=== PATIENT | male | born 1970 | race Asian ===

== ENCOUNTER 2021-07-22 15:33 | Outpatient (CLI) | payer OTHER ==
[2021-07-22 16:45] VITALS: BP 133/89
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
== END 2021-07-22 15:34 | disposition home or self-care (01) ==
LOC: SC 15:33
PROVIDERS: ATTEND Nurse Practitioner Family
DX: G47.10 Hypersomnia, unspecified (principal); R06.83 Snoring; R51.9 Headache, unspecified; G47.8 Other sleep disorders; R06.81 Apnea, not elsewhere classified; R41.89 Other symptoms and signs involving cognitive functions and awareness
CPT/HCPCS: 99203; 99212

== ENCOUNTER 2021-08-13 10:22 | Outpatient (CLI) | payer OTHER ==
[2021-08-13 15:33] LABS: ALBUMIN 4.5 g/dL (3.2-5.5); ALBUMIN/GLOBULIN RATIO 1.4 (1.0-2.2); ALKALINE PHOSPHATASE 52 IU/L (42-121); ALT ALANINE AMINOTRANSFERASE 49 IU/L (10-60); AST ASPARTATE AMINOTRANSFERASE 28 IU/L (10-42); BILIRUBIN,TOTAL 0.9 mg/dL (0.2-1.0); BUN - BLOOD UREA NITROGEN 17 mg/dL (6-20); CALCIUM 9.5 mg/dL (8.5-10.3); CARBON DIOXIDE - CO2 28 mmol/L (21-32); CHLORIDE 103 mmol/L (101-111); CHOL/HDL RATIO 6.6 (<5.0); CHOLESTEROL 299 mg/dL; CREATININE 0.9 mg/dL (0.6-1.2); GFR - MDRD 89 (>89); GLUCOSE 118 mg/dL (70-100); HDL CHOLESTEROL 45 mg/dL; LDL CHOLESTEROL,CALCULATED 218 mg/dL; LDL/HDL RATIO 4.8 (<3.6); POTASSIUM 4.1 mmol/L (3.5-5.0); SODIUM 140 mmol/L (135-145); TOTAL PROTEIN 7.8 g/dL (6.7-8.2); TRIGLYCERIDES 182 mg/dL; VLDL CHOLESTEROL 36 mg/dL
[2021-08-13 20:03] LABS: ESTIMATED AVERAGE GLUCOSE 128 mg/dL (70-100); HEMOGLOBIN A1c% 6.1 % (4.27-6.07)
== END 2021-08-13 10:23 | disposition home or self-care (01) ==
LOC: LAB.S 10:22
PROVIDERS: ATTEND Internal Medicine
DX: R06.83 Snoring (principal); Z13.220 Encounter for screening for lipoid disorders; Z83.3 Family history of diabetes mellitus
CPT/HCPCS: 36415; 80053; 80061; 83036; 83721

== ENCOUNTER 2021-09-23 15:05 | Outpatient (CLI) | payer OTHER ==
--- NOTE | 2021-09-23 15:39 | SLEEP CARE CONSULTATION ---
Information from patient questionnaire entered by Ngozi Oden. I have reviewed and concur with the information entered by Ngozi Oden. This document represents the service I personally performed and the decisions made by , Lacy Spaulding ARNP. History of Present Illness Service Date and Time: 09/23/2021 1505 Initial [place] Sleepiness Scale score: 15 (in 2020) Current [place] Sleepiness Scale score: 17 Additional HPI information: CLARE TURK returns for follow up and results of the recently performed polysomnography at [facility] on 08-02-21. I explained the pathophysiology behind obstructive sleep apnea. We then spent quite a bit of time discussing different treatment options. For mild obstructive sleep apnea, surgery and oral appliance are alternatives to nasal CPAP therapy but in moderate or severe cases, nasal CPAP is the most effective and reliable treatment. Because apnea is primarily in supine position, then positional management therapy could be effective. Methods discussed such as positioning with pillows to prevent supine sleep. I reviewed the impact of weight changes on sleep apnea and strongly recommended losing weight. After some discussion, the patient opted to go with the nasal CPAP therapy. Nasal autoCPAP set at 4-15 cmH20 will be ordered with rationale explained. A manual titration study will be ordered if unable to find optimal pressure with office adjustments. I explained how CPAP machine works with sample devices RespirShop 9 Sevens Dreamstation and Adnexus [id number] and what to expect when using the machine. Using CPAP every night in order to get used to it was emphasized. Patient advised to put CPAP mask on before getting into bed so as not to fall asleep without CPAP. To assist acclimation to CPAP use, it could also be used for a short time during day while reading or watching TV. The patient was instructed to call the CPAP supplier to discuss any mechanical problem that may occur. If the mask given is uncomfortable or is difficult to keep on through the night even with adjustment, contact the CPAP supplier as many will replace with another mask style if notified before 30 days. If snoring or perceives is not getting enough air or too much air from the machine, notify this office. [facility] patient education PAP tips reviewed and given to patient. Patient counseled not drink alcohol less than 4 hours before bedtime as it can increase snoring and apnea. Patient was cautioned about risks of drowsy driving until sleepiness symptoms resolve. AASM patient education on snoring and sleep apnea given and reviewed. Sleep Study - Results Type of Sleep Study: Polysomnography ([facility] 08/02/21) Prior sleep studies: No Polysomnography/Home Sleep Study results: RECOMMENDATION: This nocturnal polysomnographic sleep study showed moderate snoring which was continuous in nature. The apnea/ hypopnea index was 85.0 and the sleep efficiency was 94.1 %. The PLM index was 7.1. The sleep study is consistent with severe obstructive sleep apnea with significant desaturation events down to 76%. Therefore, would recommend the patient return to the sleep lab for a full-night CPAP titration study. Attaining optimal weight is recommended. The EKG showed no significant arrhythmias. Allergies and Home Medications Home medication list reviewed: Yes (no changes) Review of Systems Review of systems same as previous: Yes (no changes) Physical Exam Heart Rate: 73 O2 Saturation: 98 Height: 6 ft 6 in Weight: 248 lb Body Mass Index: 28.6 BMI Classification: Overweight Impression and Plan 1. Obstructive Sleep Apnea-Hypopnea Syndrome, very severe, with lowest oxygen saturation of 76%. Obviously this is the cause of the patients symptoms of unrefreshed sleep, and excessive daytime sleepiness. Positive pressure therapy could benefit his overall health and reduce risks for cardiovascular and cerebrovascular adverse events. As mentioned above, the patient will be started on nasal autoCPAP therapy with pressure set at 4-15 cmH2O. A manual titration study will be completed if unable to find optimal treatment pressure with office adjustments. Compliance guidelines also reviewed. A copy of compliance guidelines will be given for reference at check out. Because the apnea is more severe supine, I instructed to avoid sleeping supine using pillow positioning until able to start CPAP use. * Nasal auto CPAP therapy, pressure at 4-15 cm H2O. * Attempt to lose weight. * Avoid alcohol consumption near bedtime. * Avoid supine sleep until using CPAP. * The patient is again cautioned about driving until sleepiness completely r esolves. * Return one month after CPAP obtained. I will assess response to therapy and compliance at that time. Counseling Topics: Weight loss health impact Visit Type: In Office Time Spent with Patient (minutes): 20 Provider Statement: I spent 100% of the Face to Face Visit with the patient with greater than 50% spent counseling the patient and coordination of care.
== END 2021-09-23 15:06 | disposition home or self-care (01) ==
LOC: SC 15:05
PROVIDERS: ATTEND Nurse Practitioner Family
DX: G47.33 Obstructive sleep apnea (adult) (pediatric) (principal)
CPT/HCPCS: 99212; 99213

== ENCOUNTER 2022-05-22 14:49 | Outpatient (CLI) | payer OTHER ==
[2022-05-22 19:55] LABS: BASOPHILS # (AUTO) 0.1 10^3/uL (0.0-0.1); BASOPHILS % (AUTO) 0.5 %; EOSINOPHILS # (AUTO) 0.3 10^3/uL (0.0-0.7); EOSINOPHILS % (AUTO) 2.7 %; HCT - HEMATOCRIT 46.1 % (42.0-52.0); HGB - HEMOGLOBIN 15.3 g/dL (14.0-18.0); LYMPHOCYTES # (AUTO) 3.3 10^3/uL (1.5-3.5); LYMPHOCYTES % (AUTO) 34.9 %; MEAN CORPUSCULAR HEMOGLOBIN 29.9 pg (27.0-31.0); MEAN CORPUSCULAR HGB CONC 33.2 g/dL (32.0-36.0); MEAN PLATELET VOLUME 10.1 fL (7.4-11.4); MONOCYTES # (AUTO) 0.8 10^3/uL (0.0-1.0); MONOCYTES % (AUTO) 8.2 %; NEUTROPHILS % (AUTO) 53.5 %; PLT - PLATELET COUNT 249 10^3/uL (130-450); RED BLOOD COUNT 5.12 10^6/uL (4.70-6.10); RED CELL DISTRIBUTION WIDTH 12.8 % (12.0-15.0); WHITE BLOOD COUNT 9.3 x10^3/uL (4.8-10.8)
== END 2022-05-22 14:50 | disposition home or self-care (01) ==
LOC: LAB.S 14:49
PROVIDERS: ATTEND Registered Nurse
DX: E78.5 Hyperlipidemia, unspecified (principal); R73.9 Hyperglycemia, unspecified; R97.20 Elevated prostate specific antigen [PSA]; Z13.29 Encounter for screening for other suspected endocrine disorder; Z13.0 Encounter for screening for diseases of the blood and blood-forming organs and certain disorders involving the immune mechanism
CPT/HCPCS: 36415; 85025

== ENCOUNTER 2022-08-23 07:05 | Day surgery (SDC) | payer OTHER ==
[2022-08-23] MEDS ORDERED: LACTATED RINGERS 1,000 ML IV ONE (07:19)
[2022-08-23] MEDS ORDERED: PROPOFOL 200 MG/20 ML VIAL IVP ONE (08:01)
[2022-08-23] MEDS ORDERED: PROPOFOL 500 MG/50 ML 500 MG/50 ML VIAL ONE (08:03)
[2022-08-23] MEDS ORDERED: MIDAZOLAM 2 MG/2 ML VIAL ONE (08:03)
--- NOTE | 2022-08-23 08:09 | ANESTHESIA ---
Pre-Anesthesia VS, & Labs - Diagnosis screening - Procedure colonoscopy Vital Signs: Temp Pulse Resp BP Pulse Ox O2 Flow Rate 36.2 C L 72 14 152/95 H 99 0 08/23/22 07:19 08/23/22 07:19 08/23/22 07:19 08/23/22 07:19 08/23/22 07:19 08/23/22 07:19 Height: 6 ft 5 in Weight (kg): 109.6 kg Body Mass Index: 28.6 BMI Classification: Overweight - NPO >8 hours Home Medications and Allergies Home Medications: Ambulatory Orders No Known Home Medications 08/22/22 No Known Home Medications 08/22/22 Allergies/Adverse Reactions: Allergies Allergy/AdvReac Type Severity Reaction Status Date / Time Sulfa (Sulfonamide AdvReac Unknown Verified 08/23/22 07:27 Antibiotics) Anes History & Medical History - Anesthetic History Anesthesia Complications: reports: No previous complications Family history of Anesthesia Complications: Denies Family history of Malignant Hyperthermia: Denies - Medical History Cardiovascular: reports: None Pulmonary: reports: Sleep apnea, CPAP use Gastrointestinal: reports: None Urinary: reports: None Musculoskeletal: reports: None Endocrine/Autoimmune: reports: None Skin: reports: None Exam General: Alert, Oriented x3, Cooperative Mouth Openin Fingerbreadth Neck Mobility: Normal Mallampati classification: I Respiratory: Lungs clear Cardiovascular: Regular rate Plan Anesthesia Type: Total IV Consent for Procedure(s) Verified and Reviewed: Yes Code Status: Attempt Resuscitation ASA classification: 2-Mild systemic disease Is this case an emergency?: No
[2022-08-23] MEDS ORDERED: LACTATED RINGERS 500 ML IV ONE (09:02)
[2022-08-23 09:19] VITALS: BP 138/80
--- NOTE | 2022-08-23 11:07 | ANESTHESIA POST OP EVALUATION ---
Anesthesia Post Eval - Post Anesthesia Eval Vitals: Last Vital Signs Temp 36.2 C L 08/23/22 09:18 Pulse 66 08/23/22 09:18 Resp 16 08/23/22 09:18 BP 138/80 H 08/23/22 09:18 Pulse Ox 96 08/23/22 09:18 O2 Flow Rate 0 08/23/22 07:19 CV Function Including HR & BP: Stable Pain Control: Satisfactory Nausea & Vomiting: Negative Mental Status: Baseline Respiratory Status: Airway Patent Hydration Status: Satisfactory Anesthesia Complications: None
== END 2022-08-23 07:06 | disposition home or self-care (01) ==
LOC: SDS 07:05
PROVIDERS: ATTEND Surgery
PROC: 0DBN8ZX Excision of Sigmoid Colon, Via Natural or Artificial Opening Endoscopic, Diagnostic (ICD-10-PCS; principal; 2022-08-23 08:15)
DX: R19.5 Other fecal abnormalities (principal); K63.5 Polyp of colon; Z83.71 Family history of colonic polyps; G47.33 Obstructive sleep apnea (adult) (pediatric); K57.30 Diverticulosis of large intestine without perforation or abscess without bleeding
CPT/HCPCS: 45380; J7120

== ENCOUNTER 2023-08-11 08:45 | Outpatient (CLI) | payer OTHER ==
[2023-08-11] MEDS ORDERED: iohexoL-300 100 ML VIAL IVP ONE (09:17)
--- NOTE | 2023-08-11 09:56 | CT Report ---
PROCEDURE: IVP INDICATIONS: HEMATURIA, DYSURIA CONTRAST: 140ml omni 300 TECHNIQUE: After the administration of intravenous contrast, 5 mm thick sections acquired from the diaphragms to the symphysis. 5 mm thick coronal and sagittal reformats were acquired. For radiation dose reducti on, the following was used: automated exposure control, adjustment of mA and/or kV according to reuben ent size. COMPARISON: None. FINDINGS: Image quality: Excellent. Urinary system: Both kidneys are normal in size. No hydronephrosis or nephrolithiasis on pre-contras t images. No solid masses or complex cysts which require follow up. Right renal simple cyst measurin g 1.5 cm. The opacified renal calyces and ureters appear normal, without filling defect. Bladder wal l thickness is normal, accounting for underdistention. No calcified bladder stones. No filling defect within the opacified bladder. OTHER Lung bases and heart: Mild bibasilar subsegmental atelectasis. Heart is normal in size. Mild coronary artery calcifications. Liver: No solid mass. Gallbladder and biliary tree: No radiopaque stones or wall thickening. No biliary dilation. Spleen: No splenomegaly. Splenule is noted. Pancreas: No pancreatic ductal dilation. Adrenals: No adrenal nodule. Bowel and peritoneum: No bowel distension. No pathologic free fluid. Diverticulosis without evidence of diverticulitis. Normal appendix. Abdominal Lymph nodes: No central or retroperitoneal adenopathy. Vessels: Mild atherosclerotic vascular calcifications.. Reproductive organs: Unremarkable. Pelvic Lymph nodes: Unremarkable. Bones: No aggressive osseous abnormality. Degenerative changes of the spine. Other: Small left inguinal hernia containing fat.. IMPRESSION: 1.No cause for patient's symptoms. No renal stones or hydronephrosis. No filling defects within the o pacified renal calyces, ureters and bladder. 2.Diverticulosis without evidence of acute diverticulitis. Reviewed by: Floyd Kohler MD on 08/11/2023 9:54 AM PDT Approved by: Floyd Kohler MD on 08/11/2023 9:54 AM PDT Station ID: [id number]
== END 2023-08-11 08:46 | disposition home or self-care (01) ==
LOC: DI 08:45
PROVIDERS: ATTEND Physician Assistant Medical
DX: R31.9 Hematuria, unspecified (principal); R30.0 Dysuria; K57.90 Diverticulosis of intestine, part unspecified, without perforation or abscess without bleeding
CPT/HCPCS: 74178; Q9967

== ENCOUNTER 2023-11-21 07:42 | Outpatient (CLI) | payer OTHER ==
[2023-11-21 15:54] LABS: CHOL/HDL RATIO 6.6 (<5.0); CHOLESTEROL 328 mg/dL; HDL CHOLESTEROL 50 mg/dL; LDL CHOLESTEROL,CALCULATED 231 mg/dL; LDL/HDL RATIO 4.6 (<3.6); TRIGLYCERIDES 237 mg/dL (48-352); VLDL CHOLESTEROL 47 mg/dL
== END 2023-11-21 07:43 | disposition home or self-care (01) ==
LOC: LAB.S 07:42
PROVIDERS: ATTEND Registered Nurse
DX: E78.5 Hyperlipidemia, unspecified (principal)
CPT/HCPCS: 36415; 80061; 83721